=== PATIENT | female | born 1930 | race Caucasian/White ===

== ENCOUNTER 2016-12-28 05:26 | Inpatient (IN) | payer MEDICARE, OTHER ==
[~2016-12-28 05:26] MED LIST: ASPIR 8181 M1 PO; ATIVAN0.5 M1 PO; CALCIUM 600 +1 EA13 PO; DIOVAN160 M; DIPHENOXYLATE-1 EAC1 PO; IMODIUM A-D2 MG; NORVASC2.5 M1 PO; PRESERVISION A1 EAC4 PO; TYLENOL EXTRA500 M1 PO; WOMEN'S DAILY1 EAC4 PO; ZOFRAN8 MG
[2016-12-28 06:29] LABS: ANION GAP 13 mmol/L (0-20); BLOOD UREA NITROGEN 17 mg/dl (6-24); CALCIUM 10.3 mg/dl (8.5-10.5); CARBON DIOXIDE-VENOUS 26 mmol/L (22-32); CHLORIDE 106 mmol/l (96-110); CREATININE 0.81 mg/dl (0.50-1.10); GLUCOSE 107 mg/dL (70-110); POTASSIUM 3.9 mmol/L (3.7-5.1); SODIUM 141 mmol/L (135-145); eGFR VALUE FOR BLACK 75 mL/Min
[2016-12-28] MEDS ORDERED: COZAAR100 M1 PO (15:29)
[2016-12-28 17:19] LABS: URINE BILIRUBIN NEGATIVE (NEG); URINE BLOOD LARGE (NEG); URINE GLUCOSE (UA) NEGATIVE (NEG); URINE KETONE MODERATE (NEG); URINE LEUKOCYTE ESTERASE NEGATIVE (NEG); URINE NITRITE NEGATIVE (NEG); URINE PROTEIN MODERATE (NEG); URINE SPECIFIC GRAVITY 1.025 (1.003-1.030)
[2016-12-28 17:24] LABS: URINE APPEARANCE HAZY; URINE COLOR YELLOW
[2016-12-28 17:33] LABS: URINE AMORPHOUS 2+; URINE EPITHELIAL CELLS RARE /[HPF] (0-10)
--- NOTE | 2016-12-28 21:00 | NUR ---
VIRTUAL CARE NOTE: CAMERA IS POINTED TO THE CEILING SO THIS NURSE IS UNABLE TO VIEW THE PT. THE PT. CAN SEE THIS RN. STATES SHE IS OKAY BUT IS READY FOR HER PAIN MEDS AND READY TO GO TO SLEEP. RN ON UNIT PAGED. INSTRUCTED TO CALL FOR FURTHER NEEDS. STATES VERBAL AGREEMENT.
[2016-12-29 06:15] LABS: BASO % 0.1 % (0-2); EOS % 0.1 % (0-7); HCT-HEMATOCRIT 33.9 % (34.0-49.0); HGB-HEMOGLOBIN 11.3 gm/dl (12.0-15.5); IMMATURE GRANULOCYTES ABSOLUTE 0.03 tho/cmm (0-0.03); IMMATURE GRANULOCYTES PERCENT 0.2 % (0-0.3); LYMPH % 8.8 % (20-45); LYMPH ABSOLUTE COUNT 1.2 tho/cmm (0.8-4.5); MCHC MEAN CORPUSCULAR HGB CONC 33.3 % (32.0-36.0); MCV (MEAN CELL VOLUME) 92.9 fl (82.0-96.0); MEAN PLATELET VOLUME 11.4 cmc (9.4-12.4); MONO % 10.2 % (0-12); MONOCYTE ABSOLUTE COUNT 1.4 tho/cmm (0.0-1.2); NEUTROPHIL ABSOLUTE COUNT 10.9 tho/cmm (1.6-8.0); NEUTROPHIL-AUTOMATED 10.9 tho/cmm (1.6-8.0); NEUTROPHILS % 80.6 % (40-80); PLATELET COUNT 193 tho/cmm (150-450); RED BLOOD COUNT 3.65 mil/cmm (4.00-5.20); WHITE BLOOD COUNT 13.6 tho/cmm (4.0-10.0)
[2016-12-29 06:26] LABS: ANION GAP 11 mmol/L (0-20); BLOOD UREA NITROGEN 16 mg/dl (6-24); CALCIUM 9.3 mg/dl (8.5-10.5); CARBON DIOXIDE-VENOUS 28 mmol/L (22-32); CHLORIDE 106 mmol/l (96-110); CREATININE 0.79 mg/dl (0.50-1.10); GLUCOSE 132 mg/dL (70-110); POTASSIUM 4.3 mmol/L (3.7-5.1); SODIUM 141 mmol/L (135-145); eGFR VALUE FOR BLACK 77 mL/Min
--- NOTE | 2016-12-30 15:32 | NUR ---
VIRTUAL CARE NOTE: VISITED W/ PT AT THIS TIME. SHE IS SITTING UP IN BED. HAS FAMILY IN THE ROOM. TALKED W/ PT ABOUT HER AMBULATION, WELL IF SHE'S HAD ANY BOWEL MOVEMENT FROM OSTOMY. SHE STATES THE NURSE HAS TOLD HER SHE "HAS GOOD BOWEL SOUNDS" BUT NO STOOL FROM OSTOMY YET. STATES SHE HAS BEEN UP FOR WALKS, JUST RETURNED. TOLERATING WELL, WELL TOLERATING HER DIET. NO C/O PAIN. ENCOURAGED HER TO CALL STAFF IF SHE HAS ANY NEEDS. CALL LIGHT WITHIN REACH. WILL CONTINUE TO MONITOR. ELECTRONIC CHART REVIEWED.
--- NOTE | 2016-12-30 21:47 | NUR ---
VN ROUNDING-PATIENT LAYING IN BED WAITING FOR NIGHTTIME MEDS SO SHE CAN GO TO SLEEP. PAIN IS CONTROLLED AND SHE IS DOING WELL. SHE IS TOLERATING HER DIET AND SAID THEY CHANGED HER OSTOMY BAG TODAY. SHE HAS NO QUESTIONS OR CONCERNS AT THIS TIME. CHART WAS REVIEWED.
[2016-12-31 05:08] LABS: BASO % 0.2 % (0-2); EOS % 1.3 % (0-7); EOSINOPHIL ABSOLUTE COUNT 0.1 tho/cmm (0.0-0.7); HCT-HEMATOCRIT 36.8 % (34.0-49.0); IMMATURE GRANULOCYTES ABSOLUTE 0.04 tho/cmm (0-0.03); IMMATURE GRANULOCYTES PERCENT 0.4 % (0-0.3); LYMPH % 11.7 % (20-45); LYMPH ABSOLUTE COUNT 1.2 tho/cmm (0.8-4.5); MCH (MEAN CORPUSCULAR HGB) 30.7 pg (28.0-32.0); MCHC MEAN CORPUSCULAR HGB CONC 32.6 % (32.0-36.0); MCV (MEAN CELL VOLUME) 94.1 fl (82.0-96.0); MEAN PLATELET VOLUME 11.6 cmc (9.4-12.4); MONO % 11.2 % (0-12); MONOCYTE ABSOLUTE COUNT 1.1 tho/cmm (0.0-1.2); NEUTROPHIL ABSOLUTE COUNT 7.6 tho/cmm (1.6-8.0); NEUTROPHIL-AUTOMATED 7.6 tho/cmm (1.6-8.0); NEUTROPHILS % 75.2 % (40-80); PLATELET COUNT 188 tho/cmm (150-450); RED BLOOD COUNT 3.91 mil/cmm (4.00-5.20); RED CELL DISTRIBUTION WIDTH 15.2 % (12.4-16.4); WHITE BLOOD COUNT 10.1 tho/cmm (4.0-10.0)
--- NOTE | 2016-12-31 16:01 | NUR ---
VIRTUAL CARE NOTE: DOING WELL, SITTING UP IN CHAIR. SPOUSE AT BEDSIDE. FINISHIN UP HER I.S. WHEN I CALL IN TO TALK WITH HER. STATES SHE HAS BEEN WORKING ON THAT, WELL HAS GONE ON 3 GOOD WALKS IN THE [place] IN[facility]. NO ISSUES WITH EITHER TASK ACCORDING TO PT. STATES NOTHING BUT SOME GAS IN OSTOMY YET. ENCOURAGED HER TO CONTINUE WALKING. DOES NOT FEEL CONSTIPATED OR DISTENDED. SHE HAS NO FURTHER NEEDS OR QUESTIONS. ENC HER TO USE CALL LIGHT IF SHE NEEDS ASSISTANCE. WILL CONTINUE TO MONITOR. ELECTRONIC CHART REVIEWED.
--- NOTE | 2016-12-31 21:02 | NUR ---
LONA MONTEMAYOR-VISITED WITH PATIENT SHE LAY IN BED WATCHING TV. DENIES PAIN. SHE HAS HAD GAS BUT NO STOOL OUT OF HER OSTOMY, BUT THEY HAD TO CHANGE THE APPLIANCE AGAIN TONIGHT. SOMETHING ABOUT IT NOT STICKING DUE TO WRINKLES ON HER SKIN AND A HERNIA THAT SHE HAS. PATIENT SAID MAYBE OSTOMY NURSE CAN HELP FIGURE IT OUT TOMORROW. NO OTHER QUESTIONS OR CONCERNS AND ENC HER TO CALL FOR ASSISTANCE WHEN NEEDED. EMR REVIEWED.
--- NOTE | 2017-01-01 22:10 | NUR ---
VIRTUAL CARE NOTE: ASSESMENT DEFERRED. PT. SLEEPING.
--- NOTE | 2017-01-02 21:43 | NUR ---
VIRTUAL CARE NOTE: ASSESSMENT DEFERRED. PT. SLEEPING.
[2017-01-03 05:15] LABS: HGB-HEMOGLOBIN 11.3 gm/dl (12.0-15.5); PLATELET COUNT 212 tho/cmm (150-450)
[2017-01-05 05:33] LABS: HGB-HEMOGLOBIN 10.6 gm/dl (12.0-15.5); PLATELET COUNT 282 tho/cmm (150-450)
--- NOTE | 2017-01-05 19:43 | NUR ---
VIRTUAL CARE NOTE: ASSESSMENT DEFERRED. PT. SLEEPING.
[2017-01-06 05:48] LABS: BASO % 0.1 % (0-2); EOS % 0.8 % (0-7); EOSINOPHIL ABSOLUTE COUNT 0.1 tho/cmm (0.0-0.7); HCT-HEMATOCRIT 36.4 % (34.0-49.0); HGB-HEMOGLOBIN 12.3 gm/dl (12.0-15.5); IMMATURE GRANULOCYTES PERCENT 0.7 % (0-0.3); LYMPH % 6.5 % (20-45); MCH (MEAN CORPUSCULAR HGB) 31.2 pg (28.0-32.0); MCHC MEAN CORPUSCULAR HGB CONC 33.8 % (32.0-36.0); MCV (MEAN CELL VOLUME) 92.4 fl (82.0-96.0); MEAN PLATELET VOLUME 11.2 cmc (9.4-12.4); MONO % 5.7 % (0-12); MONOCYTE ABSOLUTE COUNT 0.8 tho/cmm (0.0-1.2); NEUTROPHIL ABSOLUTE COUNT 12.7 tho/cmm (1.6-8.0); NEUTROPHIL-AUTOMATED 12.7 tho/cmm (1.6-8.0); NEUTROPHILS % 86.2 % (40-80); PLATELET COUNT 362 tho/cmm (150-450); RED BLOOD COUNT 3.94 mil/cmm (4.00-5.20); RED CELL DISTRIBUTION WIDTH 14.4 % (12.4-16.4); WHITE BLOOD COUNT 14.7 tho/cmm (4.0-10.0)
[2017-01-06 05:58] LABS: ANION GAP 11 mmol/L (0-20); BLOOD UREA NITROGEN 22 mg/dl (6-24); CARBON DIOXIDE-VENOUS 30 mmol/L (22-32); CHLORIDE 97 mmol/l (96-110); GLUCOSE 126 mg/dL (70-110); POTASSIUM 4.4 mmol/L (3.7-5.1); SODIUM 134 mmol/L (135-145); eGFR VALUE FOR BLACK 76 mL/Min
--- NOTE | 2017-01-06 20:37 | NUR ---
VIRTUAL CARE NOTE: REVIEWED PLAN OF CARE WITH PT. PT DOING OK. SEEMS VERY FLAT. FEELS LIKE THINGS ARE GOING OK WITH OSTOMY, PAIN IS DOING ALRIGHT, N/V SEEMS TO BE DOING BETTER. SUPPORT GIVEN, ENCOURAGED THAT THESE THINGS ARE NORMAL AFTER BOWEL SURGERY AND THE NG AND OTHER MEASURES WILL HELP RESOLVE THOSE ISSUES. REVIEWED NEW MEDICATION OF ZOSYN AND POTENTIAL SIDE EFFECTS SUCH N/V CHANGES IN STOOLS, HEADACHE, UPSET STOMACH TROUBLE SLEEPING AND ALLERGIC REACTION AND TO NOTIFY STAFF OF ANY ISSUES. PT V/U. ENCOURAGED FALL PRECAUTIONS AND TO NOTIFY STAFF OF ANY NEEDS PT V/U. PT ASKED ABOUT HER ANXIETY MED (ATIVAN) SAID WE CAN REVIEW CHART IF OK TO TAKE MEDS WITH SIPS THAT I WAS UNSURE AT THIS TIME OR OTHERWISE IS CAN CALL DR. BHAKTA AND SEE IF OK TO TAKE OR CHANGE TO IV. PT DENIED NEED FOR THAT AT THIS TIME. I TOLD HER I WOULD CONTINUE TO LOOK INTO AND PLACE A NOTE ON HER CHART FOR MD TO ADDRESS TOMORROW IF NEEDED OR PT TO CALL ME BACK IF SHE NEEDS TONIGHT. SHE V/U. PT DENIES ANY OTHER QUESTIONS/CONCERNS/NEEDS AT THIS TIME. WILL CONTINUE WITH CHART REVIEW.
[2017-01-07 05:57] LABS: BASO % 0.2 % (0-2); EOS % 2.5 % (0-7); EOSINOPHIL ABSOLUTE COUNT 0.3 tho/cmm (0.0-0.7); HCT-HEMATOCRIT 34.7 % (34.0-49.0); HGB-HEMOGLOBIN 11.6 gm/dl (12.0-15.5); IMMATURE GRANULOCYTES PERCENT 0.8 % (0-0.3); LYMPH % 3.7 % (20-45); LYMPH ABSOLUTE COUNT 0.5 tho/cmm (0.8-4.5); MCHC MEAN CORPUSCULAR HGB CONC 33.4 % (32.0-36.0); MCV (MEAN CELL VOLUME) 92.8 fl (82.0-96.0); MEAN PLATELET VOLUME 10.8 cmc (9.4-12.4); MONO % 12.7 % (0-12); MONOCYTE ABSOLUTE COUNT 1.6 tho/cmm (0.0-1.2); NEUTROPHIL ABSOLUTE COUNT 9.8 tho/cmm (1.6-8.0); NEUTROPHIL-AUTOMATED 9.8 tho/cmm (1.6-8.0); NEUTROPHILS % 80.1 % (40-80); PLATELET COUNT 416 tho/cmm (150-450); RED BLOOD COUNT 3.74 mil/cmm (4.00-5.20); RED CELL DISTRIBUTION WIDTH 14.5 % (12.4-16.4); WHITE BLOOD COUNT 12.3 tho/cmm (4.0-10.0)
[2017-01-07 06:05] LABS: ANION GAP 11 mmol/L (0-20); BLOOD UREA NITROGEN 20 mg/dl (6-24); CALCIUM 9.5 mg/dl (8.5-10.5); CARBON DIOXIDE-VENOUS 29 mmol/L (22-32); CHLORIDE 101 mmol/l (96-110); CREATININE 0.72 mg/dl (0.50-1.10); GLUCOSE 130 mg/dL (70-110); POTASSIUM 4.5 mmol/L (3.7-5.1); SODIUM 136 mmol/L (135-145); eGFR VALUE FOR BLACK 87 mL/Min
[2017-01-08 05:15] LABS: HGB-HEMOGLOBIN 11.3 gm/dl (12.0-15.5); PLATELET COUNT 436 tho/cmm (150-450)
--- NOTE | 2017-01-08 18:50 | NUR ---
VIRTUAL CARE NOTE: ASSESSMENT DEFERRED. PT. SLEEPING.
[2017-01-09 04:53] LABS: BASO % 0.1 % (0-2); EOS % 0.8 % (0-7); EOSINOPHIL ABSOLUTE COUNT 0.1 tho/cmm (0.0-0.7); HCT-HEMATOCRIT 33.6 % (34.0-49.0); HGB-HEMOGLOBIN 11.3 gm/dl (12.0-15.5); IMMATURE GRANULOCYTES ABSOLUTE 0.22 tho/cmm (0-0.03); IMMATURE GRANULOCYTES PERCENT 1.2 % (0-0.3); LYMPH % 5.6 % (20-45); MCH (MEAN CORPUSCULAR HGB) 30.8 pg (28.0-32.0); MCHC MEAN CORPUSCULAR HGB CONC 33.6 % (32.0-36.0); MCV (MEAN CELL VOLUME) 91.6 fl (82.0-96.0); MEAN PLATELET VOLUME 10.2 cmc (9.4-12.4); MONOCYTE ABSOLUTE COUNT 0.9 tho/cmm (0.0-1.2); NEUTROPHIL ABSOLUTE COUNT 16.1 tho/cmm (1.6-8.0); NEUTROPHIL-AUTOMATED 16.1 tho/cmm (1.6-8.0); NEUTROPHILS % 87.3 % (40-80); PLATELET COUNT 472 tho/cmm (150-450); RED BLOOD COUNT 3.67 mil/cmm (4.00-5.20); RED CELL DISTRIBUTION WIDTH 14.2 % (12.4-16.4); WHITE BLOOD COUNT 18.5 tho/cmm (4.0-10.0)
[2017-01-09 05:03] LABS: ANION GAP 12 mmol/L (0-20); BLOOD UREA NITROGEN 10 mg/dl (6-24); CARBON DIOXIDE-VENOUS 25 mmol/L (22-32); CHLORIDE 101 mmol/l (96-110); CREATININE 0.68 mg/dl (0.50-1.10); GLUCOSE 136 mg/dL (70-110); POTASSIUM 4.1 mmol/L (3.7-5.1); SODIUM 134 mmol/L (135-145); eGFR VALUE FOR BLACK >90 mL/Min
[2017-01-10 05:16] LABS: HGB-HEMOGLOBIN 12.4 gm/dl (12.0-15.5); PLATELET COUNT 527 tho/cmm (150-450)
[2017-01-10 05:36] LABS: ALB/GLOB RATIO 0.5 (0.8-2.0); ALBUMIN 2.1 g/dl (3.5-5.0); ALKALINE PHOSPHATASE 56 U/L (33-138); ALT/SGPT 26 U/L (12-78); ANION GAP 11 mmol/L (0-20); AST/SGOT 21 U/L (10-40); BILIRUBIN,TOTAL 0.4 mg/dl (0-1.5); BLOOD UREA NITROGEN 10 mg/dl (6-24); CALCIUM 9.3 mg/dl (8.5-10.5); CARBON DIOXIDE-VENOUS 28 mmol/L (22-32); CHLORIDE 100 mmol/l (96-110); CREATININE 0.72 mg/dl (0.50-1.10); GLUCOSE 138 mg/dL (70-110); POTASSIUM 4.7 mmol/L (3.7-5.1); PREALBUMIN 10.4 mg/dl (20.0-40.0); SODIUM 134 mmol/L (135-145); eGFR VALUE FOR BLACK 87 mL/Min
[2017-01-11 06:06] LABS: BASO % 0.2 % (0-2); BASO ABSOLUTE COUNT 0.1 tho/cmm (0.0-0.2); EOS % 2.3 % (0-7); EOSINOPHIL ABSOLUTE COUNT 0.6 tho/cmm (0.0-0.7); HCT-HEMATOCRIT 35.9 % (34.0-49.0); IMMATURE GRANULOCYTES ABSOLUTE 0.54 tho/cmm (0-0.03); IMMATURE GRANULOCYTES PERCENT 2.2 % (0-0.3); LYMPH % 4.9 % (20-45); LYMPH ABSOLUTE COUNT 1.2 tho/cmm (0.8-4.5); MCH (MEAN CORPUSCULAR HGB) 30.5 pg (28.0-32.0); MCHC MEAN CORPUSCULAR HGB CONC 33.4 % (32.0-36.0); MCV (MEAN CELL VOLUME) 91.1 fl (82.0-96.0); MEAN PLATELET VOLUME 10.1 cmc (9.4-12.4); MONO % 5.4 % (0-12); MONOCYTE ABSOLUTE COUNT 1.3 tho/cmm (0.0-1.2); NEUTROPHIL ABSOLUTE COUNT 21.1 tho/cmm (1.6-8.0); NEUTROPHIL-AUTOMATED 21.1 tho/cmm (1.6-8.0); PLATELET COUNT 538 tho/cmm (150-450); RED BLOOD COUNT 3.94 mil/cmm (4.00-5.20); RED CELL DISTRIBUTION WIDTH 14.1 % (12.4-16.4)
[2017-01-11 07:21] LABS: BASO % 0.1 % (0-2); EOS % 1.8 % (0-7); EOSINOPHIL ABSOLUTE COUNT 0.4 tho/cmm (0.0-0.7); HCT-HEMATOCRIT 35.5 % (34.0-49.0); IMMATURE GRANULOCYTES ABSOLUTE 0.54 tho/cmm (0-0.03); IMMATURE GRANULOCYTES PERCENT 2.2 % (0-0.3); LYMPH % 4.9 % (20-45); LYMPH ABSOLUTE COUNT 1.2 tho/cmm (0.8-4.5); MCH (MEAN CORPUSCULAR HGB) 30.8 pg (28.0-32.0); MCHC MEAN CORPUSCULAR HGB CONC 33.8 % (32.0-36.0); MCV (MEAN CELL VOLUME) 91.3 fl (82.0-96.0); MONO % 4.8 % (0-12); MONOCYTE ABSOLUTE COUNT 1.2 tho/cmm (0.0-1.2); NEUTROPHIL ABSOLUTE COUNT 20.8 tho/cmm (1.6-8.0); NEUTROPHIL-AUTOMATED 20.8 tho/cmm (1.6-8.0); NEUTROPHILS % 86.2 % (40-80); PLATELET COUNT 528 tho/cmm (150-450); RED BLOOD COUNT 3.89 mil/cmm (4.00-5.20); RED CELL DISTRIBUTION WIDTH 14.1 % (12.4-16.4); WHITE BLOOD COUNT 24.2 tho/cmm (4.0-10.0)
[2017-01-11 07:33] LABS: ALB/GLOB RATIO 0.5 (0.8-2.0); ALBUMIN 1.8 g/dl (3.5-5.0); ALKALINE PHOSPHATASE 48 U/L (33-138); ALT/SGPT 29 U/L (12-78); ANION GAP 10 mmol/L (0-20); AST/SGOT 20 U/L (10-40); BILIRUBIN,TOTAL 0.5 mg/dl (0-1.5); BLOOD UREA NITROGEN 8 mg/dl (6-24); CALCIUM 8.8 mg/dl (8.5-10.5); CARBON DIOXIDE-VENOUS 26 mmol/L (22-32); CHLORIDE 98 mmol/l (96-110); CREATININE 0.64 mg/dl (0.50-1.10); GLUCOSE 116 mg/dL (70-110); POTASSIUM 4.2 mmol/L (3.7-5.1); SODIUM 130 mmol/L (135-145); eGFR VALUE FOR BLACK >90 mL/Min
[2017-01-11 07:39] LABS: WHITE BLOOD COUNT 24.8 tho/cmm (4.0-10.0)
[2017-01-11 12:15] LABS: INR 1.3 INR (0.9-1.1); PROTHROMBIN TIME 15.1 SECONDS (9.0-13.6)
--- NOTE | 2017-01-11 19:12 | NUR ---
VIRTUAL CARE NOTE: ASSESSMENT DEFERRED, PT. SLEEPING.
[2017-01-12 14:51] LABS: HCT-HEMATOCRIT 31.6 % (34.0-49.0); HGB-HEMOGLOBIN 10.5 gm/dl (12.0-15.5); MCH (MEAN CORPUSCULAR HGB) 30.6 pg (28.0-32.0); MCHC MEAN CORPUSCULAR HGB CONC 33.2 % (32.0-36.0); MCV (MEAN CELL VOLUME) 92.1 fl (82.0-96.0); MEAN PLATELET VOLUME 10.1 cmc (9.4-12.4); NEUTROPHIL-AUTOMATED 20.3 tho/cmm (1.6-8.0); PLATELET COUNT 455 tho/cmm (150-450); RED BLOOD COUNT 3.43 mil/cmm (4.00-5.20); RED CELL DISTRIBUTION WIDTH 14.5 % (12.4-16.4); WHITE BLOOD COUNT 24.7 tho/cmm (4.0-10.0)
[2017-01-12 15:09] LABS: ALB/GLOB RATIO 0.4 (0.8-2.0); ALBUMIN 1.3 g/dl (3.5-5.0); ALKALINE PHOSPHATASE 41 U/L (33-138); ALT/SGPT 20 U/L (12-78); ANION GAP 11 mmol/L (0-20); AST/SGOT 13 U/L (10-40); BILIRUBIN,TOTAL 0.4 mg/dl (0-1.5); BLOOD UREA NITROGEN 29 mg/dl (6-24); CALCIUM 8.3 mg/dl (8.5-10.5); CARBON DIOXIDE-VENOUS 25 mmol/L (22-32); CHLORIDE 104 mmol/l (96-110); CREATININE 1.21 mg/dl (0.50-1.10); GLUCOSE 153 mg/dL (70-110); MAGNESIUM 1.9 mg/dl (1.8-2.6); PHOSPHOROUS 3.2 mg/dl (2.5-4.9); POTASSIUM 4.6 mmol/L (3.7-5.1); PREALBUMIN 7.6 mg/dl (20.0-40.0); SODIUM 135 mmol/L (135-145); TRIGLYCERIDES 41 mg/dl (<149); eGFR VALUE FOR BLACK 46 mL/Min
[2017-01-12 15:17] LABS: BAND % 6 % (0-20); BAND ABSOLUTE COUNT 1.5 tho/cmm (0-2.0); EOSINOPHIL % 2 % (0-7); PLATELET MORPHOLOGY MACRO
--- NOTE | 2017-01-12 20:01 | NUR ---
BLOOD PRESSURE DOWN TO 80S/30S. DR. JEFFREY CALLED AND EPIDURAL TURNED DOWN TO 4 @ 1045. PT ASYPTOMATIC AND DENIES ANY PAIN. PT BLOOD PRESSURE REMAIN LOW AND DR. BHAKTA DOES NOT WANT ANY FLUIDS. ORDER TO TURN DOWN EPIDURAL AGAIN TO 2. PT REPROTS MILD 08/08 PAIN @ 1320.
[2017-01-13 07:26] LABS: ANION GAP 10 mmol/L (0-20); BLOOD UREA NITROGEN 31 mg/dl (6-24); CALCIUM 8.8 mg/dl (8.5-10.5); CARBON DIOXIDE-VENOUS 25 mmol/L (22-32); CHLORIDE 100 mmol/l (96-110); CREATININE 0.86 mg/dl (0.50-1.10); GLUCOSE 147 mg/dL (70-110); POTASSIUM 4.6 mmol/L (3.7-5.1); SODIUM 130 mmol/L (135-145); eGFR VALUE FOR BLACK 70 mL/Min
[2017-01-13 13:59] LABS: URINE BILIRUBIN NEGATIVE (NEG); URINE BLOOD LARGE (NEG); URINE GLUCOSE (UA) NEGATIVE (NEG); URINE KETONE NEGATIVE (NEG); URINE LEUKOCYTE ESTERASE POSITIVE (NEG); URINE NITRITE NEGATIVE (NEG); URINE PROTEIN MODERATE (NEG)
[2017-01-13 14:00] LABS: URINE APPEARANCE HAZY; URINE COLOR YELLOW
[2017-01-13 14:06] LABS: URINE RBC 20-30 /[HPF] (0-5); URINE WBC 15-20 /[HPF] (0-5)
[2017-01-13 14:07] LABS: URINE BACTERIA 2+
--- NOTE | 2017-01-13 19:21 | NUR ---
VIRTUAL CARE NOTE: PT. IN BED, FAMILY IN ROOM ALSO. PT. CANNOT HEAR THIS NURSE WELL WITH HEARING AIDES OUT. INSTRUCTED THE FAMILY TO TELL THE PT. TO CALL FOR FUTURE NEEDS. PT. ALSO STATES SHE IS NOT IN PAIN AT THIS TIME AND DOESN'T WANT TO TALK RIGHT NOW. GRANTED REQUEST. WILL CONTINUE TO MONITOR.
[2017-01-14 05:53] LABS: HGB-HEMOGLOBIN 9.5 gm/dl (12.0-15.5); PLATELET COUNT 427 tho/cmm (150-450)
[2017-01-14 06:00] LABS: ANION GAP 10 mmol/L (0-20); BLOOD UREA NITROGEN 26 mg/dl (6-24); CARBON DIOXIDE-VENOUS 26 mmol/L (22-32); CHLORIDE 101 mmol/l (96-110); CREATININE 0.52 mg/dl (0.50-1.10); GLUCOSE 115 mg/dL (70-110); POTASSIUM 4.3 mmol/L (3.7-5.1); SODIUM 133 mmol/L (135-145); eGFR VALUE FOR BLACK >90 mL/Min
--- NOTE | 2017-01-14 13:50 | NUR ---
VIRTUAL CARE NOTE: PT REFUSED VN ROUND AT THIS TIME.
--- NOTE | 2017-01-14 19:09 | NUR ---
VIRTUAL CARE NOTE: ASSESSMENT DEFERRED. PT. SLEEPING.
[2017-01-15 06:28] LABS: ANION GAP 10 mmol/L (0-20); BLOOD UREA NITROGEN 25 mg/dl (6-24); CALCIUM 8.9 mg/dl (8.5-10.5); CARBON DIOXIDE-VENOUS 28 mmol/L (22-32); CHLORIDE 100 mmol/l (96-110); CREATININE 0.48 mg/dl (0.50-1.10); GLUCOSE 103 mg/dL (70-110); POTASSIUM 4.5 mmol/L (3.7-5.1); SODIUM 133 mmol/L (135-145); eGFR VALUE FOR BLACK >90 mL/Min
[2017-01-16 07:08] LABS: BASO % 0.4 % (0-2); BASO ABSOLUTE COUNT 0.1 tho/cmm (0.0-0.2); EOS % 1.1 % (0-7); EOSINOPHIL ABSOLUTE COUNT 0.2 tho/cmm (0.0-0.7); HCT-HEMATOCRIT 29.9 % (34.0-49.0); HGB-HEMOGLOBIN 10.3 gm/dl (12.0-15.5); IMMATURE GRANULOCYTES ABSOLUTE 0.69 tho/cmm (0-0.03); IMMATURE GRANULOCYTES PERCENT 3.5 % (0-0.3); LYMPH % 5.7 % (20-45); LYMPH ABSOLUTE COUNT 1.1 tho/cmm (0.8-4.5); MCH (MEAN CORPUSCULAR HGB) 30.9 pg (28.0-32.0); MCHC MEAN CORPUSCULAR HGB CONC 34.4 % (32.0-36.0); MCV (MEAN CELL VOLUME) 89.8 fl (82.0-96.0); MONO % 9.5 % (0-12); MONOCYTE ABSOLUTE COUNT 1.9 tho/cmm (0.0-1.2); NEUTROPHIL ABSOLUTE COUNT 15.6 tho/cmm (1.6-8.0); NEUTROPHIL-AUTOMATED 15.6 tho/cmm (1.6-8.0); NEUTROPHILS % 79.8 % (40-80); PLATELET COUNT 599 tho/cmm (150-450); RED BLOOD COUNT 3.33 mil/cmm (4.00-5.20); RED CELL DISTRIBUTION WIDTH 14.3 % (12.4-16.4); WHITE BLOOD COUNT 19.6 tho/cmm (4.0-10.0)
[2017-01-16 07:21] LABS: ALB/GLOB RATIO 0.4 (0.8-2.0); ALBUMIN 1.5 g/dl (3.5-5.0); ALKALINE PHOSPHATASE 89 U/L (33-138); ALT/SGPT 19 U/L (12-78); ANION GAP 12 mmol/L (0-20); AST/SGOT 21 U/L (10-40); BILIRUBIN,TOTAL 0.3 mg/dl (0-1.5); BLOOD UREA NITROGEN 27 mg/dl (6-24); CALCIUM 9.4 mg/dl (8.5-10.5); CARBON DIOXIDE-VENOUS 29 mmol/L (22-32); CHLORIDE 100 mmol/l (96-110); CREATININE 0.52 mg/dl (0.50-1.10); GLUCOSE 102 mg/dL (70-110); MAGNESIUM 1.9 mg/dl (1.8-2.6); PHOSPHOROUS 2.9 mg/dl (2.5-4.9); POTASSIUM 4.5 mmol/L (3.7-5.1); PREALBUMIN 8.7 mg/dl (20.0-40.0); SODIUM 136 mmol/L (135-145); eGFR VALUE FOR BLACK >90 mL/Min
--- NOTE | 2017-01-16 21:07 | NUR ---
VIRTUAL CARE NOTE: ASSESSMENT DEFERRED. PT. SLEEPING.
[2017-01-17 05:49] LABS: BASO % 0.5 % (0-2); BASO ABSOLUTE COUNT 0.1 tho/cmm (0.0-0.2); EOS % 0.8 % (0-7); EOSINOPHIL ABSOLUTE COUNT 0.1 tho/cmm (0.0-0.7); HCT-HEMATOCRIT 26.9 % (34.0-49.0); HGB-HEMOGLOBIN 9.2 gm/dl (12.0-15.5); IMMATURE GRANULOCYTES ABSOLUTE 0.48 tho/cmm (0-0.03); IMMATURE GRANULOCYTES PERCENT 3.7 % (0-0.3); LYMPH % 10.3 % (20-45); LYMPH ABSOLUTE COUNT 1.3 tho/cmm (0.8-4.5); MCH (MEAN CORPUSCULAR HGB) 30.6 pg (28.0-32.0); MCHC MEAN CORPUSCULAR HGB CONC 34.2 % (32.0-36.0); MCV (MEAN CELL VOLUME) 89.4 fl (82.0-96.0); MEAN PLATELET VOLUME 9.9 cmc (9.4-12.4); MONO % 10.6 % (0-12); MONOCYTE ABSOLUTE COUNT 1.4 tho/cmm (0.0-1.2); NEUTROPHIL ABSOLUTE COUNT 9.6 tho/cmm (1.6-8.0); NEUTROPHIL-AUTOMATED 9.6 tho/cmm (1.6-8.0); NEUTROPHILS % 74.1 % (40-80); PLATELET COUNT 532 tho/cmm (150-450); RED BLOOD COUNT 3.01 mil/cmm (4.00-5.20); RED CELL DISTRIBUTION WIDTH 14.3 % (12.4-16.4)
[2017-01-17 05:58] LABS: ANION GAP 10 mmol/L (0-20); BLOOD UREA NITROGEN 22 mg/dl (6-24); CALCIUM 8.8 mg/dl (8.5-10.5); CARBON DIOXIDE-VENOUS 30 mmol/L (22-32); CHLORIDE 100 mmol/l (96-110); CREATININE 0.49 mg/dl (0.50-1.10); GLUCOSE 117 mg/dL (70-110); POTASSIUM 4.2 mmol/L (3.7-5.1); SODIUM 136 mmol/L (135-145); eGFR VALUE FOR BLACK >90 mL/Min
[2017-01-18 06:07] LABS: HGB-HEMOGLOBIN 9.3 gm/dl (12.0-15.5); PLATELET COUNT 494 tho/cmm (150-450)
[2017-01-18 06:21] LABS: ANION GAP 9 mmol/L (0-20); BLOOD UREA NITROGEN 24 mg/dl (6-24); CALCIUM 9.3 mg/dl (8.5-10.5); CARBON DIOXIDE-VENOUS 30 mmol/L (22-32); CHLORIDE 104 mmol/l (96-110); CREATININE 0.51 mg/dl (0.50-1.10); GLUCOSE 92 mg/dL (70-110); POTASSIUM 4.3 mmol/L (3.7-5.1); SODIUM 139 mmol/L (135-145); eGFR VALUE FOR BLACK >90 mL/Min
[2017-01-18] MEDS ORDERED: ULTRAM50 M1 PO (13:13)
[2017-01-18] MEDS ORDERED: REGLAN5 M1 PO (13:14)
[2017-01-18] MEDS ORDERED: ZOFRAN4 M2 PO (13:15)
== END 2017-01-18 14:00 | DRG 981 ==
LOC: SHSC 05:26 → ORW 07:30 → PACU 09:45 → 5WD 10:30 → ORW 01-11 14:04 → PACU 01-11 16:40 → 5WD 01-11 18:10
PROVIDERS: Anesthesiology; Physician Assistant; Surgery; ADMIT Surgery
PROC: 0D1N4Z4 Bypass Sigmoid Colon to Cutaneous, Percutaneous Endoscopic Approach (ICD-10-PCS; principal; 2016-12-28)
PROC: 02HV33Z Insertion of Infusion Device into Superior Vena Cava, Percutaneous Approach (ICD-10-PCS; 2017-01-10)
PROC: 0DQN0ZZ Repair Sigmoid Colon, Open Approach (ICD-10-PCS; 2017-01-11)
PROC: 0WUF0JZ Supplement Abdominal Wall with Synthetic Substitute, Open Approach (ICD-10-PCS; 2017-01-11)
DX: N82.8 Other female genital tract fistulae (principal); E43 Unspecified severe protein-calorie malnutrition; K56.60 Unspecified intestinal obstruction; K43.9 Ventral hernia without obstruction or gangrene; I10 Essential (primary) hypertension; H35.30 Unspecified macular degeneration; I73.9 Peripheral vascular disease, unspecified; F41.9 Anxiety disorder, unspecified; Z85.048 Personal history of other malignant neoplasm of rectum, rectosigmoid junction, and anus
CPT/HCPCS: C1751; C9113; G8978-GP-CJ; G8979-GP-CI; G8987-GO-CK; G8988-GO-CH; J0131; J1170; J1335; J1650; J1885; J2060; J2270; J2405; J2543; J2550; J2765; J2795; J3010; J3480; J7030; J7040; J7050; J7121; P9045; Q9967